=== PATIENT | female | born 1950 | race Caucasian/White ===

== ENCOUNTER 2018-06-07 12:41 | Outpatient (REF) | payer OTHER, SELFPAY | END 2018-06-07 13:01 | LOC: NCHCN 12:41 | PROVIDERS: PCP Family Medicine; Visit Provider Family Medicine | DX: M79.2 Neuralgia and neuritis, unspecified (principal); M41.9 Scoliosis, unspecified; F43.21 Adjustment disorder with depressed mood | CPT/HCPCS: 82306 ==

== ENCOUNTER 2018-08-07 10:45 | Outpatient (REF) | payer OTHER, SELFPAY ==
[2018-08-09 06:31] LABS: Vitamin D 25 Total 31.8 ng/ml (30-100)
== END 2018-08-07 11:05 ==
LOC: NCHCN 10:45
PROVIDERS: PCP Family Medicine; Visit Provider Family Medicine
DX: E55.9 Vitamin D deficiency, unspecified (principal)
CPT/HCPCS: 82306

== ENCOUNTER 2019-03-01 13:09 | Outpatient (REF) | payer OTHER, SELFPAY | END 2019-03-01 13:29 | LOC: NCHCN 13:09 | PROVIDERS: PCP Family Medicine; Visit Provider Internal Medicine | DX: N39.0 Urinary tract infection, site not specified (principal) | CPT/HCPCS: 87077; 87086; 87186 ==

== ENCOUNTER 2021-12-17 15:06 | Outpatient (REF) | payer OTHER, SELFPAY ==
[2021-12-17 14:32] LABS: Anion Gap 9.3 mmol/L (3-11); BUN 17 mg/dL (7-18); CO2 24.7 mmol/L (21.0-32.0); CREATININE 0.7 mg/dL (0.55-1.02); Calcium 9.3 mg/dL (8.5-10.1); Calculated LDL 128 mg/dL (<100); Chloride 107 mmol/L (98-107); Cholesterol 217 mg/dL (<200); Glucose 104 mg/dL (74-106); HDL Cholesterol 81 mg/dL (40-60); Potassium 4.6 mmol/L (3.5-5.1); Sodium 141 mmol/L (136-145); Triglyceride 41 mg/dL (<150)
[2021-12-20 16:21] LABS: Vitamin D 25 Total 16.4 ng/mL (30-100)
== END 2021-12-17 15:07 | disposition home or self-care (01) ==
LOC: NCHCN 15:06
PROVIDERS: PCP Family Medicine; Visit Provider Family Medicine
DX: E55.9 Vitamin D deficiency, unspecified (principal); M85.80 Other specified disorders of bone density and structure, unspecified site; R79.89 Other specified abnormal findings of blood chemistry
CPT/HCPCS: 80048; 80061; 82306

== ENCOUNTER 2022-12-21 09:24 | Outpatient (REF) | payer MEDICARE, SELFPAY ==
[2022-12-21 15:01] LABS: Anion Gap 8.1 mmol/L (3-11); BUN 16 mg/dL (7-18); CO2 26.9 mmol/L (21.0-32.0); CREATININE 0.8 mg/dL (0.55-1.02); Calcium 9.6 mg/dL (8.5-10.1); Calculated LDL 140 mg/dL (<100); Chloride 107 mmol/L (98-107); Cholesterol 228 mg/dL (<200); Estimated GFR 79.22 (mL/min/1.73m2); Glucose 98 mg/dL (74-106); HDL Cholesterol 80 mg/dL (40-60); Potassium 4.2 mmol/L (3.5-5.1); Sodium 142 mmol/L (136-145); Triglyceride 44 mg/dL (<150)
[2022-12-21 15:19] LABS: Vitamin D 25 Total 45.8 ng/mL (30-100)
[2022-12-21 15:34] LABS: Hemoglobin A1C 5.6 % (<5.7)
== END 2022-12-21 09:25 | disposition home or self-care (01) ==
LOC: NCHCN 09:24
PROVIDERS: PCP Family Medicine; Visit Provider Family Medicine
DX: R73.03 Prediabetes (principal); E55.9 Vitamin D deficiency, unspecified; E78.00 Pure hypercholesterolemia, unspecified
CPT/HCPCS: 80048; 80061; 82306; 83036